=== PATIENT | female | born 1970 | race Caucasian/White ===

== ENCOUNTER 2016-12-18 07:19 | Emergency (ER) | payer OTHER ==
[2016-12-18 07:42] VITALS: BP 185/81; PULSE 71; TEMP 98.4; BMI 41.8
--- NOTE | 2016-12-18 07:56 | EDPRACDOC ---
- General Information Chief Complaint: Skin Rash (not drug induced) Stated Complaint: RASH Time Seen by Provider: 12/18/16 07:53 Mode Of Arrival: Car Home Medications: Home Medications Hydrochlorothiazide 25 mg PO QAM #20 tab 04/13/14 Clindamycin HCl 300 mg PO TID #30 capsule 12/18/16 Hydroxyzine Pamoate [Vistaril] 25 mg PO Q6 PRN #20 capsule 12/18/16 Prednisone [Sterapred DS 10 mg/12 day pack] 48 tab PO DIR #1 pack 12/18/16 Allergies/Adverse Reactions: Allergies Allergy/AdvReac Type Severity Reaction Status Date / Time Sulfa (Sulfonamide Allergy Rash-Locali Verified 12/18/16 07:42 Antibiotics) zed - History of Present Illness Onset: YEST HPI: ABOUT 2 WEEKS AGO SAW [facility] FOR A BIG RED IRRITATED PLACE ON ABD. TRYING NEOSPORIN. THEN ABOUT 10 DAYS AGO SPOTS ON FACE SHOWED UP. ABDOMINAL REDNESS VERY ITCHY. SPREAD TO CHEST AND FOREARMS. ALSO HAS BEEN USING A LAUNDRY DETERGENT THAT SHE THINKS SHE IS ALLERGIC TO. 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 (Medication/ BENADRYL-MIDNIGHT Dose/Time) ED Past Medical History - Patient Medical History Cardiac History: Reports: Hypertension (NO MEDS) Surgical History: Reports: Cholecystectomy, Hysterectomy, Tonsillectomy/ Adnoidectomy EDM Review of Systems - Review of Systems ROS Negative Except as Marked: Yes All systems reviewed and were negative except as marked Constitutional: No Symptoms Reported Respiratory: No Symptoms Reported Cardiovascular: No Symptoms Reported - Physical Exam Constitutional: Alert (Awake), No apparent distress Oriented to: Time, Person, Place Last recorded Vital Signs: Last Vital Signs Temp 98.4 F 12/18/16 07:40 Pulse 71 12/18/16 07:40 Resp 20 12/18/16 07:40 BP 185/81 H 12/18/16 07:40 Pulse Ox 98 12/18/16 07:40 Oxygen Pulse Oxygen Saturation 98 O2 Device Oxygen Flow Rate Fraction of Inspired Oxygen ( FIO2) - HEENT Head: Normal ( normocephalic) Eye Exam: Normal (PERRL, EOMI, Sclera white), Other (PERIORBITAL EDEMA.) Oropharynx: Normal (Pharynx:Moist without exudate,Gums-no swelling) Nose: No Symptoms Reported (septum midline) Neck: Normal (FROM, trachea at midline) - Respiratory/Cardiovascular Respiratory: Normal - CTA (BBS clear to auscultation without adventitious sounds ) Cardiovascular: Normal (RRR without murmur, gallop or rub) - GI Auscultation: Normal (NABS) Palpation: Normal (Soft,No rebound or guarding, non distended) Tenderness: Non tender Gutierrez's Sign: Negative - Musculoskeletal Back: Normal (Non-Tender) Extremities: Normal (Normal tone, Pulses 2+ No cyanosis or edema, FROM) - Integumentary Skin: Warm, Dry, Other (ERYTHEM OF PANUS, LEFT ABD WALL LARGE PAPULE. LEFT CHIN AND BETWEEN EYEBROWS CRUSTING ERYTHEMA. FINE PAPULAR RASH CHEST, FOREARMS.) Lymphatics: Normal (no adenopathy) - Neurologic Memory Impaired: Normal Motor Function: Normal (Normal tone, Pulses 2+ No cyanosis or edema, FROM) Cranial Nerve: Normal (CN II-X11 intact sensation, strength 5/5) Cerebellar: Normal Mood Description: Normal Perception: Normal Decision Time to Discharge: 08:03 - Departure Yes I personally saw and evaluated the patient. Disposition: Home Condition: Stable Final Diagnosis: Cellulitis of abdominal wall, Impetigo Education/Counseling Given To: Patient, Family Member Education/Counseling Given Regarding: Diagnosis Referrals: None,No Provider [Primary Care Provider] - One Week Additional Instructions: STOP USING ANY TOPICAL MEDS. RETURN IF SYMPTOMS CHANGE OR WORSEN.
[2016-12-18] MEDS ORDERED: PREDNISONE 20 MG TAB PO ONE (08:00)
[2016-12-18] MEDS ORDERED: CLINDAMYCIN 150 MG CAP PO ONE (08:00)
== END 2016-12-18 08:15 | disposition home or self-care (01) ==
LOC: ED 07:19
DX: L03.311 Cellulitis of abdominal wall (principal); L01.00 Impetigo, unspecified
CPT/HCPCS: 99283; J3490